=== PATIENT | male | born 1995 | race Caucasian/White ===

== ENCOUNTER 2019-08-27 01:50 | Emergency (ER) | payer SELFPAY ==
[~2019-08-27] VITALS: Ht 182.9 cm; Wt 71.0 kg
[2019-08-27 01:59] VITALS: BP 113/70
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
== END 2019-08-27 03:08 | disposition left against medical advice (07) ==
LOC: ED 03:02
DX: S02.5XXA Fracture of tooth (traumatic), initial encounter for closed fracture (principal); F19.10 Other psychoactive substance abuse, uncomplicated; X58.XXXA Exposure to other specified factors, initial encounter; W18.39XA Other fall on same level, initial encounter; Y93.89 Activity, other specified; Y92.89 Other specified places as the place of occurrence of the external cause; Y99.8 Other external cause status
CPT/HCPCS: 70450; 70487; 72125; 99284